=== PATIENT | female | born 1990 | race Two or more races ===

== ENCOUNTER 2020-12-09 08:23 | Inpatient (IN) | payer MEDICAID, OTHER ==
[~2020-12-09] VITALS: Ht 167.6 cm; Wt 86.1 kg
[2020-12-09 09:05] LABS: Urine Bacteria NONE SEEN /hpf (None Seen); Urine Blood Negative /uL (Negative); Urine Mucus FEW (None Seen); Urine WBC 1 /hpf (0 - 5)
[2020-12-09] MEDS ORDERED: MORPHINE SULFATE 4 MG/ML SYR/VIAL IV ONE (09:15)
[2020-12-09] MEDS ORDERED: metroNIDAZOLE 500MG/100ML 100 ML IV ONE (09:15)
[2020-12-09] MEDS ORDERED: ONDANSETRON HCL 4 MG/2 ML VIAL IV ONE (09:15)
[2020-12-09] MEDS ORDERED: cefTRIAXone 1GM/50ML D5W 50 ML IV ONE (09:15)
[2020-12-09 09:28] LABS: Basophils # (auto) 0 10 ^3/uL (0-0.2); Basophils % (auto) 0.1 % (0.0-2.0); Eosinophils # (auto) 0 10 ^3/uL (0-0.8); Eosinophils % (auto) 0.1 % (0.0-7.0); Hematocrit 40.4 % (36.0-46.0); Hemoglobin 13.8 g/dL (12.2-16.2); Lymphocytes # (auto) 0.8 10 ^3/uL (0.4-5.4); Lymphocytes % (auto) 6.9 % (10.0-50.0); Mean Corpuscular Hemoglobin 32.1 pg (28.0-32.0); Mean Corpuscular Hgb Conc. 34.3 g/dL (32.0-36.0); Mean Corpuscular Volume 93.8 fL (80.0-100.0); Monocytes # (auto) 0.6 10 ^3/uL (0-1.3); Monocytes % (auto) 4.8 % (0.0-12.0); Neutrophils # (auto) 10.2 10 ^3/uL (1.6-8.6); Neutrophils % (auto) 88.1 % (37.0-80.0); Red Blood Cells 4.31 10^6/uL (4.0-5.20); Red Cell Distribution Width 13.8 % (11.8-14.3); White Blood Cell 11.5 10^3/uL (4.4-10.8)
[2020-12-09 09:52] LABS: Albumin 4.2 g/dL (3.4-5.0); Calcium 9.2 mg/dL (8.5-10.1); Potassium 3.7 mmol/L (3.5-5.1)
[2020-12-09 09:56] LABS: BUN/Creatinine Ratio 11.5; Total Protein 8.7 g/dL (6.4-8.2)
[2020-12-09] MEDS ORDERED: SODIUM CHLORIDE 0.9% 1,000 ML IV ONE ×2 (11:15)
[2020-12-09] MEDS ORDERED: NITROGLYCERIN 0.4 MG SL TAB SL PRN (11:30)
[2020-12-09] MEDS ORDERED: MORPHINE SULFATE INJECTION 2 MG/ML SYRG IV PRN (11:30)
[2020-12-09] MEDS ORDERED: PROMETHAZINE HCL 25 MG/ML 1ML IV PRN (11:45)
[2020-12-09] MEDS: SODIUM CHLORIDE 0.9% 1,000 ML IV SCH ×2 (12:22→18:05)
[2020-12-09] MEDS: MORPHINE SULFATE INJECTION 2 MG/ML SYRG IV PRN ×5 (13:27→22:34)
[2020-12-09] MEDS: LORazepam 2MG/ML-1ML VIAL IV PRN ×2 (13:27→19:39)
[2020-12-09] MEDS: metroNIDAZOLE 500MG/100ML 100 ML IV SCH ×2 (14:00→21:16)
[2020-12-09 17:00] VITALS: BP 137/74
[2020-12-09 17:15] VITALS: BP 137/74
[2020-12-09] MEDS ORDERED: MELA3TAB27 PO (18:10)
[2020-12-09] MEDS ORDERED: IBUP1CAP5 PO (18:10)
[2020-12-09] MEDS ORDERED: MELA5CAP PO (18:13)
[2020-12-09] MEDS: FAMOTIDINE (10MG/ML) 2ML VL IV SCH (21:16)
[2020-12-09 22:00] VITALS: BP 149/72
[2020-12-10] MEDS: SODIUM CHLORIDE 0.9% 1,000 ML IV SCH ×4 (01:15→21:27)
[2020-12-10] MEDS: MORPHINE SULFATE INJECTION 2 MG/ML SYRG IV PRN ×6 (01:18→22:16)
[2020-12-10] MEDS: LORazepam 2MG/ML-1ML VIAL IV PRN ×3 (02:01→20:07)
[2020-12-10 05:00] VITALS: BP 152/94
[2020-12-10] MEDS: metroNIDAZOLE 500MG/100ML 100 ML IV SCH ×3 (05:18→21:27)
[2020-12-10 07:11] LABS: Basophils # (auto) 0 10 ^3/uL (0-0.2); Basophils % (auto) 0.2 % (0.0-2.0); Eosinophils # (auto) 0 10 ^3/uL (0-0.8); Eosinophils % (auto) 0.1 % (0.0-7.0); Hematocrit 37.6 % (36.0-46.0); Hemoglobin 12.8 g/dL (12.2-16.2); Lymphocytes % (auto) 6.7 % (10.0-50.0); Mean Corpuscular Hemoglobin 32.3 pg (28.0-32.0); Mean Corpuscular Volume 94.9 fL (80.0-100.0); Monocytes # (auto) 1.1 10 ^3/uL (0-1.3); Monocytes % (auto) 7.2 % (0.0-12.0); Neutrophils # (auto) 13.5 10 ^3/uL (1.6-8.6); Neutrophils % (auto) 85.8 % (37.0-80.0); Red Blood Cells 3.96 10^6/uL (4.0-5.20); Red Cell Distribution Width 14.3 % (11.8-14.3); White Blood Cell 15.7 10^3/uL (4.4-10.8)
[2020-12-10 07:16] LABS: Albumin 3.5 g/dL (3.4-5.0); BUN/Creatinine Ratio 11.5; Calcium 8.8 mg/dL (8.5-10.1); Potassium 3.8 mmol/L (3.5-5.1)
[2020-12-10 07:19] LABS: Bilirubin, Total 0.6 mg/dL (0.2-1.0); Total Protein 7.7 g/dL (6.4-8.2)
[2020-12-10 08:15] VITALS: BP 145/83
[2020-12-10] MEDS: cefTRIAXone 1GM/50ML D5W 50 ML IV SCH (08:45)
[2020-12-10 09:00] VITALS: BP 145/83
[2020-12-10] MEDS: FAMOTIDINE (10MG/ML) 2ML VL IV SCH ×2 (10:05→21:27)
[2020-12-10 13:00] VITALS: BP 134/82
[2020-12-10] MEDS ORDERED: chlordiazePOXIDE HCL 25 MG CAP PO PRN (14:00)
[2020-12-10 17:00] VITALS: BP 123/93
[2020-12-10 22:00] VITALS: BP 134/82
[2020-12-11] MEDS: MORPHINE SULFATE INJECTION 2 MG/ML SYRG IV PRN ×4 (03:19→20:24)
[2020-12-11] MEDS: SODIUM CHLORIDE 0.9% 1,000 ML IV SCH ×4 (03:46→23:58)
[2020-12-11 05:00] VITALS: BP 138/79
[2020-12-11 05:20] LABS: Basophils # (auto) 0 10 ^3/uL (0-0.2); Basophils % (auto) 0.2 % (0.0-2.0); Eosinophils # (auto) 0.1 10 ^3/uL (0-0.8); Eosinophils % (auto) 1.3 % (0.0-7.0); Hematocrit 35.7 % (36.0-46.0); Hemoglobin 12.2 g/dL (12.2-16.2); Lymphocytes # (auto) 1.7 10 ^3/uL (0.4-5.4); Lymphocytes % (auto) 16.5 % (10.0-50.0); Mean Corpuscular Hgb Conc. 34.1 g/dL (32.0-36.0); Mean Corpuscular Volume 96.5 fL (80.0-100.0); Monocytes # (auto) 0.9 10 ^3/uL (0-1.3); Monocytes % (auto) 8.8 % (0.0-12.0); Neutrophils # (auto) 7.4 10 ^3/uL (1.6-8.6); Neutrophils % (auto) 73.2 % (37.0-80.0); Nucleated Red Blood Cells % 0.1 %; Red Cell Distribution Width 13.9 % (11.8-14.3); White Blood Cell 10.2 10^3/uL (4.4-10.8)
[2020-12-11 05:40] LABS: Potassium 3.6 mmol/L (3.5-5.1)
[2020-12-11 05:46] LABS: Albumin 2.8 g/dL (3.4-5.0); BUN/Creatinine Ratio 18.4; Bilirubin, Total 0.6 mg/dL (0.2-1.0); Total Protein 6.9 g/dL (6.4-8.2)
[2020-12-11] MEDS: metroNIDAZOLE 500MG/100ML 100 ML IV SCH ×3 (06:11→22:11)
[2020-12-11 08:42] VITALS: BP 126/82
[2020-12-11] MEDS: cefTRIAXone 1GM/50ML D5W 50 ML IV SCH (09:00)
[2020-12-11] MEDS: FAMOTIDINE (10MG/ML) 2ML VL IV SCH ×2 (09:20→22:11)
[2020-12-11] MEDS: LORazepam 2MG/ML-1ML VIAL IV PRN ×2 (09:21→23:30)
[2020-12-11 12:55] VITALS: BP 142/86
[2020-12-11 17:03] VITALS: BP 140/94
[2020-12-11 22:00] VITALS: BP 153/85
[2020-12-12 05:00] VITALS: BP 150/91
[2020-12-12] MEDS: metroNIDAZOLE 500MG/100ML 100 ML IV SCH ×3 (05:43→22:46)
[2020-12-12] MEDS: MORPHINE SULFATE INJECTION 2 MG/ML SYRG IV PRN ×3 (05:45→20:21)
[2020-12-12 06:16] LABS: Basophils # (auto) 0 10 ^3/uL (0-0.2); Basophils % (auto) 0.4 % (0.0-2.0); Eosinophils # (auto) 0.2 10 ^3/uL (0-0.8); Hematocrit 34.3 % (36.0-46.0); Hemoglobin 11.7 g/dL (12.2-16.2); Lymphocytes # (auto) 1.5 10 ^3/uL (0.4-5.4); Lymphocytes % (auto) 18.6 % (10.0-50.0); Mean Corpuscular Hemoglobin 32.4 pg (28.0-32.0); Mean Corpuscular Volume 95.4 fL (80.0-100.0); Monocytes # (auto) 0.7 10 ^3/uL (0-1.3); Monocytes % (auto) 9.2 % (0.0-12.0); Neutrophils # (auto) 5.5 10 ^3/uL (1.6-8.6); Neutrophils % (auto) 69.8 % (37.0-80.0); Nucleated Red Blood Cells % 0.1 %; Red Cell Distribution Width 13.6 % (11.8-14.3); White Blood Cell 7.9 10^3/uL (4.4-10.8)
[2020-12-12 06:34] LABS: Albumin 2.8 g/dL (3.4-5.0); Potassium 3.5 mmol/L (3.5-5.1)
[2020-12-12 06:37] LABS: BUN/Creatinine Ratio 14.7; Bilirubin, Total 0.4 mg/dL (0.2-1.0); Total Protein 6.7 g/dL (6.4-8.2)
[2020-12-12] MEDS: SODIUM CHLORIDE 0.9% 1,000 ML IV SCH ×2 (07:00→13:44)
[2020-12-12 08:46] VITALS: BP 144/85
[2020-12-12] MEDS: cefTRIAXone 1GM/50ML D5W 50 ML IV SCH (09:11)
[2020-12-12] MEDS: FAMOTIDINE (10MG/ML) 2ML VL IV SCH ×2 (09:39→22:46)
[2020-12-12] MEDS: LORazepam 2MG/ML-1ML VIAL IV PRN ×2 (09:39→20:21)
[2020-12-12 13:30] VITALS: BP 144/80
[2020-12-12 16:30] VITALS: BP 127/63
[2020-12-12] MEDS: Ensure Pudding Vanilla 4 oz Cup PO SCH (19:09)
[2020-12-12 22:00] VITALS: BP 143/88
[2020-12-13] MEDS: SODIUM CHLORIDE 0.9% 1,000 ML IV SCH ×2 (02:00→09:05)
[2020-12-13] MEDS: MORPHINE SULFATE INJECTION 2 MG/ML SYRG IV PRN ×2 (03:51→08:02)
[2020-12-13 05:06] LABS: Basophils # (auto) 0 10 ^3/uL (0-0.2); Basophils % (auto) 0.6 % (0.0-2.0); Eosinophils # (auto) 0.1 10 ^3/uL (0-0.8); Eosinophils % (auto) 1.7 % (0.0-7.0); Hematocrit 34.8 % (36.0-46.0); Hemoglobin 11.8 g/dL (12.2-16.2); Lymphocytes # (auto) 1.6 10 ^3/uL (0.4-5.4); Lymphocytes % (auto) 29.1 % (10.0-50.0); Mean Corpuscular Hemoglobin 32.1 pg (28.0-32.0); Mean Corpuscular Hgb Conc. 33.9 g/dL (32.0-36.0); Mean Corpuscular Volume 94.9 fL (80.0-100.0); Monocytes # (auto) 0.6 10 ^3/uL (0-1.3); Neutrophils % (auto) 56.6 % (37.0-80.0); Nucleated Red Blood Cells % 0.1 %; Red Blood Cells 3.67 10^6/uL (4.0-5.20); Red Cell Distribution Width 13.5 % (11.8-14.3); White Blood Cell 5.4 10^3/uL (4.4-10.8)
[2020-12-13 05:40] LABS: Potassium 3.5 mmol/L (3.5-5.1)
[2020-12-13 05:48] LABS: BUN/Creatinine Ratio 10.3; Bilirubin, Total 0.5 mg/dL (0.2-1.0); Calcium 8.3 mg/dL (8.5-10.1); Total Protein 6.7 g/dL (6.4-8.2)
[2020-12-13] MEDS: metroNIDAZOLE 500MG/100ML 100 ML IV SCH ×2 (05:49→14:00)
[2020-12-13 05:56] VITALS: BP 143/93
[2020-12-13] MEDS: Ensure Pudding Vanilla 4 oz Cup PO SCH ×2 (08:01→12:00)
[2020-12-13 08:30] VITALS: BP 133/73
[2020-12-13] MEDS: cefTRIAXone 1GM/50ML D5W 50 ML IV SCH (09:00)
[2020-12-13] MEDS: FAMOTIDINE (10MG/ML) 2ML VL IV SCH (10:09)
[2020-12-13] MEDS: LORazepam 2MG/ML-1ML VIAL IV PRN (10:10)
[2020-12-13 12:57] VITALS: BP 143/84
== END 2020-12-13 14:37 | disposition home or self-care (01) | DRG 282 ==
LOC: ER 08:23 → TELE 11:30 → TELE-WESTW 14:52
PROVIDERS: ADMIT Internal Medicine; ATTEND Internal Medicine
DX: K85.20 Alcohol induced acute pancreatitis without necrosis or infection (principal); N17.0 Acute kidney failure with tubular necrosis; R65.11 Systemic inflammatory response syndrome (SIRS) of non-infectious origin with acute organ dysfunction; E44.0 Moderate protein-calorie malnutrition; E86.0 Dehydration; F17.210 Nicotine dependence, cigarettes, uncomplicated; N18.9 Chronic kidney disease, unspecified; Y90.9 Presence of alcohol in blood, level not specified; Z20.822 Contact with and (suspected) exposure to COVID-19; E66.3 Overweight; Z68.29 Body mass index [BMI] 29.0-29.9, adult; F10.239 Alcohol dependence with withdrawal, unspecified
CPT/HCPCS: 36415; 74176; 80053; 81001; 82150; 83605; 83690; 84443; 85025; 87040; 87426; 96365; 96367; 96375; G0378; J0696; J2405; J3490